=== PATIENT | female | born 1995 | race Caucasian/White ===

== ENCOUNTER 2021-01-26 15:40 | Emergency (ER) | payer OTHER, SELFPAY ==
[2021-01-26 15:58] VITALS: BP 130/82; PULSE 87; RESP 18; TEMP 36.6; O2SAT 98; BMI 50.8
--- NOTE | 2021-01-26 17:04 | ED.HA ---
HPI - Headache General Chief Complaint: Headache Stated Complaint: Sent by [facility] for Covid Test, close contact with Time Seen by Provider: 01/26/21 16:59 Mode of arrival: Ambulatory Limitations: no limitations Patient History Social History Smoking Status: Never smoker Smoking Status: Never smoker Substance Use Type: does not use Exam Initial Vital Signs Initial Vital Signs: Vital Signs Temperature 97.8 F 01/26/21 15:58 Pulse Rate 87 01/26/21 15:58 Respiratory Rate 18 01/26/21 15:58 Blood Pressure 130/82 01/26/21 15:58 Pulse Oximetry 98 01/26/21 15:58 Course Orders Ordered: ED Orders 01/26/21 16:07 COVID19 -Nasal swab/Pre-Proc Stat Vital Signs Vital signs: Vital Signs - 8 hr 01/26/21 15:58 Temperature 97.8 F Pulse Rate 87 Respiratory Rate 18 Blood Pressure 130/82 Pulse Oximetry 98
[2021-01-26 17:16] LABS: COVID19 -Nasal RAPID Negative (Negative)
[2021-01-26 18:10] VITALS: BP 119/79; PULSE 70; RESP 18
--- NOTE | 2021-02-01 03:46 | ED_ITS ---
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 She called [facility] and was told that appointments were not available for an extended period of time. She went to a walk-in clinic and was declined so she comes to the ER for help with socially responsible COVID screening. Review of Systems Review of Systems Narrative: Remainder of review is otherwise unremarkable Patient History Social History Smoking Status: Never smoker Smoking Status: Never smoker Substance Use Type: does not use Exam Narrative Exam Narrative: General: Alert appropriate in no acute distress Respiratory: Able to speak in full sentences, no obvious respiratory distress Skin: No obvious rashes, warm and dry Neurologic: Grossly intact no obvious asymmetries or abnormalities Psych: appropriate insight and affect, cooperative Initial Vital Signs Initial Vital Signs: Vital Signs Temperature 97.8 F 01/26/21 15:58 Pulse Rate 87 01/26/21 15:58 Respiratory Rate 18 01/26/21 15:58 Blood Pressure 130/82 01/26/21 15:58 Pulse Oximetry 98 01/26/21 15:58 MDM - Headache Medical Records Attestation: I reviewed the patient's medical records. Lab Data Attestation: I reviewed the patient's lab results. Labs: Lab Results 01/26/21 Range/Units 16:07 SARS-CoV-2 (PCR) Negative (Negative) MDM Narrative Medical decision making narrative: 25-year-old woman with negative COVID testing. Suspect seasonal allergies is the cause for the minor scratchiness in her throat. She is safe for home discharge Discharge Plan Departure Patient Disposition: Home Clinical Impression: Acute sore throat Instructions: DI for Allergic Rhinitis Activity Restrictions/Additional Instructions: Thank you for coming in today With the mild sore throat that you have had I suspect that you are having some postnasal drip and allergy symptoms. Using [id number] medications like Claritin, Aleve or Janelle may be helpful in controlling the symptoms. Thank you for being so responsible in seeking out a COVID test today Your COVID test today was negative If you have worsening symptoms or concerns, please feel free to return to the ER Referrals: Dania,Doctor, MD [Primary Care Provider] -
== END 2021-01-26 18:35 | disposition home or self-care (01) ==
PROVIDERS: Emergency Medicine; Emergency Provider Emergency Medicine
DX: J02.9 Acute pharyngitis, unspecified (principal); Z20.822 Contact with and (suspected) exposure to COVID-19
CPT/HCPCS: 87635; 99282; C9803